=== PATIENT | female | born 1980 | race American Indian/Alaskan Native ===

== ENCOUNTER 2019-11-25 11:04 | Emergency (ER) | payer MEDICAID ==
[2019-11-25 11:46] VITALS: BP 160/94
--- NOTE | 2019-11-25 14:03 | XRay Report ---
Right little finger series-3 views INDICATION: right pinky injury. COMPARISON: None. IMPRESSION: There is mild flexion at the little finger DIP joint on all of the images as well as mil d soft tissue swelling extending along the dorsum of the hand. No fracture identified. No significan t DJD. Signer Name: Edil Calhoun MD Signed: 11/25/2019 1:58 PM Workstation Name: [id number]
--- NOTE | 2019-11-25 14:26 | Emergency Department Report ---
ED Upper Extremity Inj HPI - General Chief Complaint: Extremity Injury, Upper Stated Complaint: FINGER PAIN Time Seen by Provider: 11/25/19 13:34 Source: patient Mode of arrival: Ambulatory Limitations: No Limitations - History of Present Illness Initial Comments: Patient is a 39-year-old female presents emergency room complaints of an injury to her right pinky that occurred yesterday. She states that something got stuck to her pinky and she was rubbing it off and felt a popping sensation. She states that this happened to this pinky before. She denies any numbness or weakness. She denies any past medical history or allergies to medications. - Related Data Allergies Allergy/AdvReac Type Severity Reaction Status Date / Time No Known Allergies Allergy Verified 11/25/19 11:42 ED Review of Systems ROS: Stated complaint: FINGER PAIN Other details as noted in HPI Comment: All other systems reviewed and negative ED Past Medical Hx - Past Medical History Previous Medical History?: No - Surgical History Past Surgical History?: No - Social History Smoking Status: Current Some Day Smoker ED Physical Exam - General Limitations: No Limitations General appearance: alert, in no apparent distress - Head Head exam: Present: atraumatic, normocephalic - Eye Eye exam: Present: normal appearance - ENT ENT exam: Present: mucous membranes moist - Extremities Exam Extremities exam: Present: other (the right pinky finger is in the flexed position at the DIP, full passive ROM, no obvious ecchymosis or edema, neurovascularly intact) - Neurological Exam Neurological exam: Present: alert, oriented X3 - Psychiatric Psychiatric exam: Present: normal affect, normal mood - Skin Skin exam: Present: warm, dry, intact ED Course Vital Signs 11/25/19 11:45 Temperature 98.1 F Pulse Rate 71 Respiratory 14 Rate Blood Pressure 160/94 O2 Sat by Pulse 100 Oximetry ED Medical Decision Making - Radiology Data Radiology results: report reviewed Right little finger series-3 views INDICATION: right pinky injury. COMPARISON: None. IMPRESSION: There is mild flexion at the little finger DIP joint on all of the images as well as mild soft tissue swelling extending along the dorsum of the hand. No fracture identified. No significant DJD. Signer Name: Edil Calhoun MD Signed: 11/25/2019 1:58 PM Workstation Name: [id number] Transcribed By: GALO Dictated By: Edil Calhoun MD Electronically Authenticated By: Edil Calhoun MD Signed Date/Time: 11/25/191357 DD/ 57 TD/TT: - Medical Decision Making Patient is a 39-year-old female presents emergency room complaints of an injury to her right pinky that occurred yesterday. She states that something got stuck to her pinky and she was rubbing it off and felt a popping sensation. She states that this happened to this pinky before. She denies any numbness or weakness. She denies any past medical history or allergies to medications. on exam: the right pinky finger is in the flexed position at the DIP, full passive ROM, no obvious ecchymosis or edema, neurovascularly intact. XR right pinky finger: There is mild flexion at the little finger DIP joint on all of the images as well as mild soft tissue swelling extending along the dorsum of the hand. No fracture identified. No significant DJD. examination most likely consistent with mallet finger, potential for ligament/tendon tear, discussed findings with pt and discussed the importance of orthopedic follow up. pt placed in finger splint by nurse and remained neurovascularly intact. advised pt May alternate Tylenol and ibuprofen as needed for discomfort. May ice 15 minutes at a time, rest, please wear finger splint. Follow-up with orthopedic doctor. It is very important that you follow-up with the orthopedic. return to emergency room for any new or worsening symptoms. - Differential Diagnosis strain, sprain, fx, dislocation Critical care attestation.: If time is entered above; I have spent that time in minutes in the direct care of this critically ill patient, excluding procedure time. ED Disposition Clinical Impression: Mallet deformity of right little finger Injury of right little finger Qualifiers: Encounter type: initial encounter Qualified Code(s): S69.91XA - Unspecified injury of right wrist, hand and finger(s), initial encounter Disposition: TO HOME OR SELFCARE Is pt being admited?: No Does the pt Need Aspirin: No Condition: Stable Instructions: Jammed Finger (ED) Additional Instructions: May alternate Tylenol and ibuprofen as needed for discomfort. May ice 15 minutes at a time, rest, please wear finger splint. Follow-up with orthopedic doctor. It is very important that you follow-up with the orthopedic. return to emergency room for any new or worsening symptoms. Referrals: EVERTON GUILLORY MD [Staff Physician] - 2-3 Days [facility] [Provider Group] - 2-3 Days MOSES BURK MD [Referring] - 2-3 Days Time of Disposition: 14:25 Print Language: RWANDAN
== END 2019-11-25 14:30 | disposition home or self-care (01) ==
LOC: ED 11:04
DX: S69.91XA Unspecified injury of right wrist, hand and finger(s), initial encounter (principal); M20.011 Mallet finger of right finger(s); F17.200 Nicotine dependence, unspecified, uncomplicated; W22.8XXA Striking against or struck by other objects, initial encounter; Y93.89 Activity, other specified; Y92.89 Other specified places as the place of occurrence of the external cause; Y99.8 Other external cause status
CPT/HCPCS: 99283